=== PATIENT | male | born 1995 | race American Indian/Alaskan Native ===

== ENCOUNTER 2017-07-18 18:40 | Emergency (ER) | payer OTHER ==
[2017-07-18 18:49] VITALS: BP 132/89
[2017-07-18] MEDS ORDERED: DUONEB *Not for PRN Use IH ONE ×3 (18:54→20:02)
--- NOTE | 2017-07-18 19:21 | Emergency Department Report ---
ED Asthma HPI - General Chief Complaint: Adult Asthma Stated Complaint: FLU LIKE SYMPTOMS/ASTHMA Time Seen by Provider: 07/18/17 18:54 Source: patient Mode of arrival: Ambulatory Limitations: No Limitations - Related Data Previous Rx's Medication Instructions Recorded Last Taken Type Albuterol *Only Ed* [Proventil 2.5 mg IH Q4H PRN #1 box 11/22/15 Unknown Rx 0.5% NEBS] predniSONE [Deltasone] 20 mg PO BID 5 Days tab 11/22/15 Unknown Rx Allergies Allergy/AdvReac Type Severity Reaction Status Date / Time No Known Allergies Allergy Verified 11/22/15 09:22 ED Review of Systems ROS: Stated complaint: FLU LIKE SYMPTOMS/ASTHMA Other details as noted in HPI ED Past Medical Hx - Past Medical History Previous Medical History?: Yes Hx Hypertension: Yes Hx Asthma: Yes - Surgical History Past Surgical History?: No - Social History Smoking Status: Never Smoker Substance Use Type: None - Medications Home Medications: Home Medications Medication Instructions Recorded Confirmed Last Taken Type Albuterol *Only Ed* [Proventil 2.5 mg IH Q4H PRN #1 box 11/22/15 Unknown Rx 0.5% NEBS] predniSONE [Deltasone] 20 mg PO BID 5 Days tab 11/22/15 Unknown Rx ED Physical Exam - General Limitations: No Limitations ED Course Vital Signs 07/18/17 18:46 Temperature 100 F H Pulse Rate 113 H Respiratory 22 Rate Blood Pressure 132/89 O2 Sat by Pulse 100 Oximetry Critical care attestation.: If time is entered above; I have spent that time in minutes in the direct care of this critically ill patient, excluding procedure time. ED Disposition Condition: Stable Referrals: TANYA SANCHEZ MD [Primary Care Provider] - 3-5 Days
[2017-07-18] MEDS ORDERED: MOTRIN PO ONE (20:01)
[2017-07-18] MEDS ORDERED: NACL 0.9% 1000 ML 1,000 ML IV ONE (20:02)
--- NOTE | 2017-07-18 20:07 | Emergency Department Report ---
- General Chief Complaint: Adult Asthma Stated Complaint: FLU LIKE SYMPTOMS/ASTHMA Time Seen by Provider: 07/18/17 18:54 Source: patient Mode of arrival: Ambulatory Limitations: No Limitations - History of Present Illness Initial Comments: This is a 22-year-old male nontoxic, well nourished in appearance, no acute signs of distress presents to the ED with c/o of wheezing, shortness of breathe , fever, productive cough x1 day. Patient denies any recent travels, long car rides, or recent hospital stays. Patient stated his productive cough has green/ yellow mucus production. Patient denies any chest pain, shortness of breathe, fever, chills, headache, abdominal pain, nausea, vomiting, hemoptysis, calf pain , calf tenderness, numbness or tinging. Patient stated he ran out of his medications. Patient denies any allergies. PMH includes asthma and HTN. MD Complaint: fever, cough, other (wheezing) -: days(s) (1) Severity: mild Consistency: constant Improves With: nothing Worsens With: nothing Associated Symptoms: fever, cough. denies: chills, myalgias, diaphoresis, headache, rhinorrhea, nasal congestion, sore throat, stiff neck, chest pain, shortness of breath, abdominal pain, nausea, vomiting, diarrhea, dysuria, rash, confusion, right sweats, weight loss, epistaxis, hoarseness, ear pain Treatments Prior to Arrival: none - Related Data Previous Rx's Medication Instructions Recorded Last Taken Type Albuterol *Only Ed* [Proventil 2.5 mg IH Q4H PRN #1 box 11/22/15 Unknown Rx 0.5% NEBS] predniSONE [Deltasone] 20 mg PO BID 5 Days tab 11/22/15 Unknown Rx ALBUTEROL Inhaler [ProAir HFA 2 puff IH QID PRN #1 inhalation 07/18/17 Unknown Rx Inhaler] ALBUTEROL NEB's [Proventil 0.083% 2.5 mg IH TID PRN 30 Days neb 07/18/17 Unknown Rx NEBS] Azithromycin [Zithromax Z-ALVINA] 250 mg PO DAILY #6 tablet 07/18/17 Unknown Rx predniSONE [Deltasone] 40 mg PO QDAY #5 tab 07/18/17 Unknown Rx Allergies Allergy/AdvReac Type Severity Reaction Status Date / Time No Known Allergies Allergy Verified 11/22/15 09:22 ED Review of Systems ROS: Stated complaint: FLU LIKE SYMPTOMS/ASTHMA Other details as noted in HPI Constitutional: denies: chills, fever Eyes: denies: eye pain, eye discharge, vision change ENT: denies: ear pain, throat pain Respiratory: cough, shortness of breath, wheezing Cardiovascular: denies: chest pain, palpitations Endocrine: no symptoms reported Gastrointestinal: denies: abdominal pain, nausea, diarrhea Genitourinary: denies: urgency, dysuria Musculoskeletal: denies: back pain, joint swelling, arthralgia Skin: denies: rash, lesions Neurological: denies: headache, weakness, paresthesias Psychiatric: denies: anxiety, depression Hematological/Lymphatic: denies: easy bleeding, easy bruising ED Past Medical Hx - Past Medical History Previous Medical History?: Yes Hx Hypertension: Yes Hx Asthma: Yes - Surgical History Past Surgical History?: No - Social History Smoking Status: Never Smoker Substance Use Type: None - Medications Home Medications: Home Medications Medication Instructions Recorded Confirmed Last Taken Type Albuterol *Only Ed* [Proventil 2.5 mg IH Q4H PRN #1 box 11/22/15 Unknown Rx 0.5% NEBS] predniSONE [Deltasone] 20 mg PO BID 5 Days tab 11/22/15 Unknown Rx ALBUTEROL Inhaler [ProAir HFA 2 puff IH QID PRN #1 inhalation 07/18/17 Unknown Rx Inhaler] ALBUTEROL NEB's [Proventil 0.083% 2.5 mg IH TID PRN 30 Days neb 07/18/17 Unknown Rx NEBS] Azithromycin [Zithromax Z-ALVINA] 250 mg PO DAILY #6 tablet 07/18/17 Unknown Rx predniSONE [Deltasone] 40 mg PO QDAY #5 tab 07/18/17 Unknown Rx ED Physical Exam - General Limitations: No Limitations General appearance: alert, in no apparent distress - Head Head exam: Present: atraumatic, normocephalic, normal inspection - Eye Eye exam: Present: normal appearance, PERRL, EOMI. Absent: scleral icterus, conjunctival injection, nystagmus, periorbital swelling, periorbital tenderness Pupils: Present: normal accommodation - ENT ENT exam: Present: normal exam, normal orophraynx, mucous membranes moist, TM's normal bilaterally, normal external ear exam - Neck Neck exam: Present: normal inspection, full ROM. Absent: tenderness, meningismus, lymphadenopathy, thyromegaly - Respiratory Respiratory exam: Present: normal lung sounds bilaterally, wheezes (upper and lower lobes ins and exp). Absent: respiratory distress, rales, rhonchi, stridor , chest wall tenderness, accessory muscle use, decreased breath sounds, prolonged expiratory - Cardiovascular Cardiovascular Exam: Present: regular rate, normal rhythm, tachycardia, normal heart sounds. Absent: irregular rhythm, systolic murmur, diastolic murmur, rubs , gallop - GI/Abdominal GI/Abdominal exam: Present: soft, normal bowel sounds. Absent: distended, tenderness, guarding, rebound, rigid, diminished bowel sounds - Rectal Rectal exam: Present: deferred - Extremities Exam Extremities exam: Present: normal inspection, full ROM, normal capillary refill. Absent: tenderness, pedal edema, joint swelling, calf tenderness - Back Exam Back exam: Present: normal inspection, full ROM. Absent: tenderness, CVA tenderness (R), CVA tenderness (L), muscle spasm, paraspinal tenderness, vertebral tenderness, rash noted - Neurological Exam Neurological exam: Present: alert, oriented X3, CN II-XII intact, normal gait, reflexes normal - Psychiatric Psychiatric exam: Present: normal affect, normal mood - Skin Skin exam: Present: warm, dry, intact, normal color. Absent: rash ED Course Vital Signs 07/18/17 18:46 Temperature 100 F H Pulse Rate 113 H Respiratory 22 Rate Blood Pressure 132/89 O2 Sat by Pulse 100 Oximetry - Reevaluation(s) Reevaluation #1: 07/18/17 20:08 Patient is speaking in full sentences with no signs of distress noted. ED Medical Decision Making - Medical Decision Making This is a 22-year-old male that presents with upper resp infection and asthma exacerbation. Patient is stable and was examined by me. Patient received Motrin , DuoNeb 2, 1 L of normal saline, Solu-Medrol 125mg in the ED. Patient stated symptoms of wheezing and shortness of breathe has subsided and patient feels much better. Chest xray has been obtained and dictated by radiologist with normal exam. Patient was notified of xray results with no questions noted. Patient is discharged with zpak, prednisone, albuterol neb and inhaler. Patient was instructed to Follow-up with a primary care doctor in 3-5 days or if symptoms worsen and continue return to emergency room as soon as possible. At time time of discharge, the patient does not seem toxic or ill in appearance. No acute signs of distress noted. Patient agrees to discharge treatment plan of care. No further questions noted by the patient. Critical care attestation.: If time is entered above; I have spent that time in minutes in the direct care of this critically ill patient, excluding procedure time. ED Disposition Clinical Impression: Upper respiratory infection Qualifiers: URI type: unspecified URI Qualified Code(s): J06.9 - Acute upper respiratory infection, unspecified Asthma exacerbation Qualifiers: Asthma severity: mild Asthma persistence: unspecified Qualified Code(s): J45.901 - Unspecified asthma with (acute) exacerbation Disposition: TO HOME OR SELFCARE Is pt being admited?: No Does the pt Need Aspirin: No Condition: Stable Instructions: Albuterol (By breathing), Prednisone (By mouth), Azithromycin ( By mouth), Asthma (ED), Upper Respiratory Infection (ED) Additional Instructions: Follow-up with a primary care doctor in 3-5 days or if symptoms worsen and continue return to emergency room as soon as possible. Prescriptions: ALBUTEROL Inhaler [ProAir HFA Inhaler] 2 puff IH QID PRN #1 inhalation PRN Reason: Shortness Of Breath ALBUTEROL NEB's [Proventil 0.083% NEBS] 2.5 mg IH TID PRN 30 Days neb PRN Reason: Wheezing Azithromycin [Zithromax Z-ALVINA] 250 mg PO DAILY #6 tablet predniSONE [Deltasone] 40 mg PO QDAY #5 tab Referrals: TANYA SANCHEZ MD [Primary Care Provider] - 3-5 Days BARB SIMON MD [Staff Physician] - 3-5 Days [facility] [place][Note 3[facility] [Outside] - 3-5 Days [facility] [Outside] - 3-5 Days Forms: Work/School Release Form(ED)
--- NOTE | 2017-07-18 20:28 | XRay Report ---
FINAL REPORT EXAM: XR CHEST ROUTINE 2V HISTORY: wheezing SOB TECHNIQUE: PA and lateral views of the chest PRIORS: None. FINDINGS: Lines, tubes, and devices: N/A Lungs and pleura: Trachea is normal in position. Lungs are clear of infiltrate, pleural effusion, vascular congestion, or pneumothorax. Cardiomediastinal silhouette: Cardiac and mediastinal silhouettes are unremarkable. Other: Bony structures are intact. IMPRESSION: No acute cardiopulmonary process seen.
== END 2017-07-18 22:05 | disposition home or self-care (01) ==
LOC: ED 18:40
DX: J06.9 Acute upper respiratory infection, unspecified (principal); J45.901 Unspecified asthma with (acute) exacerbation; I10 Essential (primary) hypertension
CPT/HCPCS: 71020; 96360; 96372; 99283; J2930; J7030